=== PATIENT | female | born 1960 | race Caucasian/White ===

== ENCOUNTER → 2016-09-18 | Outpatient (CLI) | payer BC ==
[~2016-09-18] MED LIST: ATOR10TA88 PO; BIOF500T PO; CALC1CHW57 PO; COEN10CA5; EFF/375 PO; MULT-506 PO; OMEGCAP2 PO; SENNTAB23 PO
--- NOTE | 2016-09-18 14:32 | MAMMOGRAPHY REPORT ---
BILATERAL DIGITAL SCREENING MAMMOGRAM TOMOSYNTHESIS WITH CAD: 09/18/2016 CLINICAL HISTORY: Routine screening examination. TECHNIQUE: Bilateral breast tomosynthesis in addition to standard 2D mammography was performed. Curr ent study was also evaluated with a Computer Aided Detection (CAD) system. COMPARISON: Comparison is made to exams dated: 09/16/2015 mammogram, 09/12/2014 mammogram, 09/21/2013 ultrasound, 09/08/2012 mammogram, 08/27/2011 mammogram, and 08/23/2009 mammogram - [facility]. BREAST COMPOSITION: The tissue of both breasts is heterogeneously dense, which may obscure small ma sses. FINDINGS: There is an incompletely visualized mass in the far posterior right breast, along the pos terior nipple line on the CC view, measuring at least 4.7 mm. This is thought to project superiorly based on the MLO tomosynthesis images. Although it could represent a cyst, additional spot magda keron tomosynthesis views and targeted ultrasound are recommended. There is a stable 2.7 cm mass in the 9:00 right breast. No other suspicious mass, architectural dist ortion or cluster of microcalcifications is seen bilaterally. IMPRESSION: ACR BI-RADS CATEGORY 0: INCOMPLETE EVALUATION: NEED ADDITIONAL IMAGING EVALUATION The incompletely visualized 4.7 mm mass in the right breast needs additional evaluation. The patient will be called to schedule an appointment. Approximately 10% of breast cancers are not detected with mammography. A negative mammographic repor t should not delay biopsy if a clinically suggestive mass is present. Liseth Olguin M.D. ay/:09/18/2016 13:03:11 Battery Container Finishing Hand: Teresa CARROLL(Keyla)(M), [facility] letter sent: Addl Imaging 0 BI-RADS Code: ACR BI-RADS Category 0: Incomplete Evaluation: Need Additional Imaging Evaluation
== END | disposition home or self-care (01) ==
LOC: C.MAMM 08:47
PROVIDERS: ATTEND Obstetrics & Gynecology
DX: Z12.31 Encounter for screening mammogram for malignant neoplasm of breast (principal); N63 Unspecified lump in breast

== ENCOUNTER → 2016-09-30 | Outpatient (CLI) | payer BC ==
[~2016-09-30] MED LIST changes: +ATOR10TA82 PO; -ATOR10TA88 PO
--- NOTE | 2016-09-30 15:55 | MAMMOGRAPHY REPORT ---
UNILATERAL RIGHT DIGITAL DIAGNOSTIC MAMMOGRAM TOMOSYNTHESIS AND TARGETED RIGHT ULTRASOUND: 09/30/2016 CLINICAL HISTORY: Callback from screening mammogram for right breast mass. TECHNIQUE: Breast tomosynthesis in addition to standard 2D mammography was performed. Spot magda keron right CC and MLO 2-D and tomosynthesis images, spot magnification right cc and ML views, and ri ght CC and MLO 2-D and tomosynthesis images were obtained. COMPARISON: Comparison is made to exams dated: 09/18/2016 mammogram, 09/16/2015 mammogram, 09/12/2014 mammogram, 09/21/2013 mammogram, 09/08/2012 mammogram, and 09/02/2011 mammogram - [facility]. BREAST COMPOSITION: The tissue of the right breast is heterogeneously dense, which may obscure smal l masses. FINDINGS: Spot compression views of the right breast demonstrate an irregular 6 x 5 mm mass within the right 12:00 breast. Spot magnification views demonstrate 2-3 amorphous calcifications seen in a ssociation with the mass. Targeted ultrasound was performed of the right 12:00 breast in the region of the mammographic mass. In the right breast at 12:00, 4 cm from the nipple, there is a subtle hypoechoic ill-defined mass w ith a surrounding hyperechoic halo, in total measuring 6 x 7 x 6 mm. A BB was placed at this site o n the skin and repeat right CC and MLO views were obtained. The BB aligns with the mammographic mas s on the MLO view but does not clearly align with the mass on the cc view, suggesting that the subtl e ultrasound finding could, but does not definitely, align with the mammographic mass. However, giv en that it does not clearly align, stereotactic biopsy is recommended for further evaluation as oppo sed to ultrasound guided biopsy. IMPRESSION: ACR BI-RADS CATEGORY 4C: MODERATE SUSPICION FOR MALIGNANCY, TARGETED ULTRASOUND ACR BI- RADS CATEGORY 4C: MODERATE SUSPICION FOR MALIGNANCY Irregular 6 mm mass with associated calcifications in the right breast at 12:00, with a possible sub tle ultrasound correlate. The mass is indeterminate and stereotactic biopsy is recommended for furt her evaluation. A phone call was made to the physician's office to confirm faxed results were received. The patient has been verbally notified of the results. She tentatively scheduled the biopsy before leaving the department. Approximately 10% of breast cancers are not detected with mammography. A negative mammographic repor t should not delay biopsy if a clinically suggestive mass is present. Sarah Danielle M.D. ah/:09/30/2016 13:54:05 Projects Manager: Alycia YADAV)(Bg), [facility] letter sent: Abnormal 4/5 BI-RADS Code: ACR BI-RADS Category 4C: Moderate Suspicion For Malignancy Ultrasound BI-RADS: ACR BI -RADS Category 4C: Moderate Suspicion For Malignancy
== END | disposition home or self-care (01) ==
LOC: C.MAMM 13:02
PROVIDERS: ATTEND Obstetrics & Gynecology
DX: N63 Unspecified lump in breast (principal); R92.1 Mammographic calcification found on diagnostic imaging of breast

== ENCOUNTER → 2016-10-09 | Outpatient (CLI) | payer BC ==
--- NOTE | 2016-10-09 13:15 | Discharge Instructions ---
Discharge Instructions Procedure Procedure Date: Oct 09, 2016. Reason for visit: Right Mass/Calcs. Discharge Discharge Date: Oct 09, 2016. Discharge Diagnosis: status post breast biopsy Instructions Activity Recommendations: Additional Limitations (see below) Return to School/Work: no limitations Recommended Home Diet: No Limitations Provider Instructions: ACTIVITY RECOMMENDATIONS: * No lifting, pushing, pulling or exercising the affected side for three days. RETURN TO SCHOOL/WORK: * You may return to work/school after the procedure, but do not perform any strenuous activities for 24 to 48 hours. MEDICATIONS: * Tylenol (two 325 mg) every four to six hours if needed for mild pain (if not allergic to Tylenol). DIET: * Resume previous diet. SPECIAL CARE INSTRUCTIONS: * Keep biopsy site dry for 24 hours. May shower after 24 hours, but do not soak (bathe) incision. * May remove Tegaderm (plastic patch) tomorrow AFTER showering. * Leave the steri-strips on for one week. Allow the steri-strips to fall off by themselves. If not off after one week, you may remove them. You may place a Bandaid crosswise over the strips, if desired. * Apply ice 10 minutes on and 10 minutes off as needed. * Wear a bra at bedtime to sleep more comfortably for 2-3 days. * Your referring physician should have the results after approximately 5 to 7 business days. * Call for unusual bleeding, fever, drainage, etc or if you have any questions call during normal business hours or after hours call Dr Danielle, . FOLLOW UP VISIT: Follow-up with Referring Physician as scheduled. Allergies Coded Allergies: No Known Allergies (Unverified , 09/14/05) Tequila Marie Recommendations: Call your doctor if: * Temperature above 101 degrees * Pain not relieved by pain medicine ordered * There is increased drainage or redness from any incision * You have any unanswered questions or concerns. Your Doctors Instructions noted above were prepared by provider Sarah Danielle. Patient Signature Section: Patient Instructions Signature Page Mery Stark Patient (or Guardian) Signature/Date: I have read and understand the instructions given to me by my caregivers. Caregiver/RN/Doctor Signature/Date: The above-named patient and/or guardian has received patient instructions on this date. + Original Patient Signature Page (only) stays with chart. Please make copy for patient.
--- NOTE | 2016-10-09 15:34 | MAMMOGRAPHY REPORT ---
THIS REPORT HAS BEEN AMENDED. STEREOTACTIC GUIDED BIOPSY RIGHT BREAST: 10/09/2016 CLINICAL HISTORY: Right 12:00 breast mass with associated calcifications. PATIENT CONSENT: The procedure, risks, benefits, and alternatives of stereotactic biopsy with clip p lacement were discussed with the patient, and verbal and written consent was obtained. A timeout wa s performed immediately prior to the procedure. PROCEDURE DESCRIPTION: With stereotactic guidance, aseptic technique, and lidocaine as a local anest hetic (1% lidocaine to anesthetize the skin and 1% lidocaine with epinephrine to anesthetize the vandana per tissues), the area of concern in the right 12:00 breast was sampled multiple times with a 9-gaug e vacuum-assisted biopsy needle (VinPerfect). The path of approach was craniocaudal. The specimen radiograph demonstrates calcifications to be present in the samples. A metallic marker clip was pl aced at the biopsy site. This was confirmed on postprocedure mammograms. Direct pressure was appli ed at the biopsy site and hemostasis was readily achieved. The patient tolerated the procedure with out complication. She was given wound care instructions. COMPARISON: Comparison is made to exams dated: 09/30/2016 ultrasound, 09/30/2016 mammogram, 09/18/2016 mammogram, 09/16/2015 mammogram, 09/12/2014 mammogram, and 09/21/2013 ultrasound - [facility]. IMPRESSION: STEREOTACTIC GUIDED BIOPSY Stereotactic biopsy of indeterminate mass and associated calcifications in the right 12:00 breast, w ith clip placement. The patient will receive pathology results from her referring provider. Sarah Danielle M.D. ah/:10/09/2016 13:16:13 Donor Services Manager: Teresa CARROLL(Keyla)(Bg), [facility] AMENDMENT: 10/14/2016 Sarah Danielle M.D. The pathology from right breast stereotactic biopsy was reviewed on 10/14/2016. 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 Leighton mmend surgical consultation. Also recommend bilateral breast MRI given the dense breast parenchyma mammographically.
--- NOTE | 2016-10-09 15:35 | MAMMOGRAPHY REPORT ---
UNILATERAL RIGHT DIGITAL DIAGNOSTIC MAMMOGRAM: 10/09/2016 CLINICAL HISTORY: Status post right breast stereotactic biopsy. TECHNIQUE: Postprocedural right CC and ML views were obtained. COMPARISON: Comparison is made to exams dated: 09/30/2016 mammogram, 09/16/2015 mammogram, 09/12/2014 mammogram, 09/21/2013 mammogram, and 09/08/2012 mammogram - [facility]. BREAST COMPOSITION: The tissue of the right breast is heterogeneously dense, which may obscure smal l masses. FINDINGS: Post procedural right CC and ML views demonstrate a new biopsy marker clip in the right 1 2:00 breast at the site of the biopsied mass with associated calcifications. No significant postbio psy hematoma was seen. A preprocedural cc view was also obtained prior to the biopsy for biopsy kendra nning purposes. IMPRESSION: POST PROCEDURE IMAGING FOR MARKER PLACEMENT New biopsy marker clip status post right breast stereotactic biopsy. Pathology results are pending. Approximately 10% of breast cancers are not detected with mammography. A negative mammographic repor t should not delay biopsy if a clinically suggestive mass is present. Sarah Danielle M.D. /:10/09/2016 13:34:33 Textile Screen Maker: Teresa CARROLL(Keyla)(M), [facility] BI-RADS Code: Post Procedure Imaging For Marker Placement
== END | disposition home or self-care (01) ==
LOC: C.MAMM 12:38
PROVIDERS: ATTEND Obstetrics & Gynecology
DX: N63 Unspecified lump in breast (principal); R92.1 Mammographic calcification found on diagnostic imaging of breast; C50.911 Malignant neoplasm of unspecified site of right female breast

== ENCOUNTER → 2017-01-04 | Outpatient (CLI) | payer BC ==
[~2017-01-04] MED LIST changes: -ATOR10TA82 PO; +ATOR10TA88 PO
== END | disposition home or self-care (01) ==
LOC: C.MAMM 12:31
PROVIDERS: ATTEND Family Medicine
DX: M85.851 Other specified disorders of bone density and structure, right thigh (principal); M85.852 Other specified disorders of bone density and structure, left thigh; M81.6 Localized osteoporosis [Lequesne]

== ENCOUNTER → 2017-01-04 | Outpatient (CLI) | payer BC ==
--- NOTE | 2017-01-04 14:50 | DIAGNOSTIC IMAGING REPORT ---
LEFT FOOT MIN 3 VIEWS CLINICAL HISTORY: LEFT FOOT PAIN pain COMPARISON: None. DISCUSSION: Oblique fractures of the mid shafts of the fourth and fifth metatarsals. Slight angulation. No evidence for dislocation. Mild bunion deformity distal first metatarsal. All remaining osseous structures are unremarkable. Mild soft tissue edema IMPRESSION: Oblique slightly comminuted fractures midshaft fourth and fifth metatarsals. Electronically signed by: Chong Messina M.D. 01/04/2017 2:48 PM Dictated Date/Time: 01/04/2017 2:47 PM
== END | disposition home or self-care (01) ==
LOC: C.RDSM 14:43
PROVIDERS: ATTEND Physician Assistant
DX: S92.355A Nondisplaced fracture of fifth metatarsal bone, left foot, initial encounter for closed fracture (principal); S92.345A Nondisplaced fracture of fourth metatarsal bone, left foot, initial encounter for closed fracture; X58.XXXA Exposure to other specified factors, initial encounter

== ENCOUNTER → 2017-01-06 | Outpatient (CLI) | payer BC | END | disposition home or self-care (01) | LOC: C.PAPS 16:51 | PROVIDERS: ATTEND Obstetrics & Gynecology | DX: Z01.419 Encounter for gynecological examination (general) (routine) without abnormal findings (principal) ==

== ENCOUNTER → 2017-01-11 | Outpatient (CLI) | payer BC ==
--- NOTE | 2017-01-11 08:43 | DIAGNOSTIC IMAGING REPORT ---
LEFT FOOT MIN 3 VIEWS HISTORY:56 yearsFemale[age] FOOT PAIN COMPARISON: Left foot radiographs 01/04/2017. TECHNIQUE: 3 views of the left foot. FINDINGS: Slightly comminuted and obliquely oriented mildly displaced fractures of the distal fourth and fifth metatarsals are redemonstrated. There is 2 mm medial displacement with approximately 15 degrees apex medial angulation of the fourth metatarsal which appears unchanged. There is approximately 2 mm medial displacement with 7 degrees apex medial angulation of the distal fifth metatarsal shaft. Minimal healing callus formation is present. No additional acute fracture or dislocation identified. 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 There is persistent mild soft tissue swelling of the forefoot. IMPRESSION: Mild healing of the previously described displaced and angulated mildly comminuted fourth and fifth metatarsal fractures with persistent soft tissue swelling. The above report was generated using voice recognition software. It may contain grammatical, syntax or spelling errors. Electronically signed by: Josesito Yadav 01/11/2017 8:42 AM Dictated Date/Time: 01/11/2017 8:38 AM
== END | disposition home or self-care (01) ==
LOC: C.RDSM 07:45
PROVIDERS: ATTEND Physician Assistant
DX: S92.352D Displaced fracture of fifth metatarsal bone, left foot, subsequent encounter for fracture with routine healing (principal); S92.342D Displaced fracture of fourth metatarsal bone, left foot, subsequent encounter for fracture with routine healing; X58.XXXD Exposure to other specified factors, subsequent encounter

== ENCOUNTER → 2017-01-26 | Outpatient (CLI) | payer BC ==
--- NOTE | 2017-01-26 08:58 | DIAGNOSTIC IMAGING REPORT ---
LEFT FOOT MIN 3 VIEWS HISTORY: 56 years-old Female LEFT FOOT PAIN . Follow-up study of the left fourth and fifth metatarsal fractures. COMPARISON: Left foot radiographs 01/11/2017. TECHNIQUE: 3 views of the left foot FINDINGS: There is redemonstration of mildly comminuted, displaced and angulated fractures of the distal diaphyseal portions of the fourth and fifth metatarsals demonstrating unchanged alignment and angulation. There is mild progressive healing and callus surrounding the fracture sites with persistent moderate associated soft tissue swelling. No additional acute fracture or dislocation is identified. There is moderate osteoarthritis involving the first MTP joint. IMPRESSION: Mild progressive healing of the mildly comminuted, displaced and angulated fractures of the fourth and fifth metatarsals with unchanged alignment. The above report was generated using voice recognition software. It may contain grammatical, syntax or spelling errors. Electronically signed by: Josesito Yadav M.D. 01/26/2017 8:57 AM Dictated Date/Time: 01/26/2017 8:52 AM
== END | disposition home or self-care (01) ==
LOC: C.RDSM 09:00
PROVIDERS: ATTEND Physician Assistant
DX: M79.672 Pain in left foot (principal); S92.342A Displaced fracture of fourth metatarsal bone, left foot, initial encounter for closed fracture; S92.352A Displaced fracture of fifth metatarsal bone, left foot, initial encounter for closed fracture; X58.XXXA Exposure to other specified factors, initial encounter

== ENCOUNTER → 2017-03-22 | Outpatient (CLI) | payer BC ==
--- NOTE | 2017-03-22 10:46 | DIAGNOSTIC IMAGING REPORT ---
LEFT FOOT MIN 3 VIEWS CLINICAL HISTORY: F/U LEFT FOOT FX trauma. Fracture. COMPARISON: 01/26/2017 DISCUSSION: Fractures of the mid to distal shafts fourth and fifth metatarsals. Slight interval healing compared to the prior exam. 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 IMPRESSION: Minimal/partial healing of the oblique fractures distal aspect fourth and fifth metatarsals. Bony alignment is unchanged. 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 The above report was generated using voice recognition software. It may contain grammatical, syntax or spelling errors. Electronically signed by: Chong Messina M.D. 03/22/2017 10:44 AM Dictated Date/Time: 03/22/2017 10:36 AM
== END | disposition home or self-care (01) ==
LOC: C.RDSM 10:15
PROVIDERS: ATTEND Physician Assistant
DX: S92.344D Nondisplaced fracture of fourth metatarsal bone, right foot, subsequent encounter for fracture with routine healing (principal); S92.354D Nondisplaced fracture of fifth metatarsal bone, right foot, subsequent encounter for fracture with routine healing; X58.XXXD Exposure to other specified factors, subsequent encounter

== ENCOUNTER → 2017-04-19 | Outpatient (CLI) | payer BC | END | disposition home or self-care (01) | LOC: C.RDSM 14:01 | PROVIDERS: ATTEND Physical Medicine & Rehabilitation Sports Medicine | DX: M79.672 Pain in left foot (principal) ==

== ENCOUNTER → 2017-06-21 | Outpatient (CLI) | payer OTHER, BC ==
[~2017-06-21] MED LIST changes: +ATOR10TA82 PO; -ATOR10TA88 PO
== END | disposition home or self-care (01) ==
LOC: C.RDSM 09:00
PROVIDERS: ATTEND Physical Medicine & Rehabilitation Sports Medicine
DX: S92.309A Fracture of unspecified metatarsal bone(s), unspecified foot, initial encounter for closed fracture (principal); X58.XXXA Exposure to other specified factors, initial encounter